=== PATIENT | female | born 1995 | race Caucasian/White ===

== ENCOUNTER 2017-11-12 18:37 | Emergency (ER) | payer OTHER, SELFPAY ==
[2017-11-12 19:44] VITALS: BP 104/68; PULSE 91; RESP 18; TEMP 36.8; O2SAT 96; BMI 17.6
[2017-11-12 20:12] LABS: UTC Influenza A Antigen Negative (Negative); UTC Influenza B Antigen Positive (Negative)
--- NOTE | 2017-11-12 20:25 | [facility]H.EDUTC ---
[facility] [place] Impression: Influenza B Disposition: Home, Self-Care Condition on Discharge: Good Instructions: DI for Influenza -- Adult Additional Instructions: * Too late to start tamiflu. Most effective when started within 48 hours of symptoms onset. * Lots of rest * Increase fluids, water, gatorade, powerade, pedialyte if /toddler/child * Monitor Temp. Tylenol every 4 hours as needed no more then 5 times a day or 4000mg in 24 hours and/or ibuprofen every 6 hours as needed no more then 3200mg in 24 hours (as long as your primary care doctor has told you that it is ok to take both) for fever/aches/pain. ER if fever no less than 101 despite tylenol and Ibuprofen * OTC cold/flu/sinus medication is ok but pick one. Do not take multiple different ones as they have similar ingredients and you can overdose on cold medication. * You (or your child) are contagious until no fever, aches, chills x 24 hours without medication for symptoms. Referrals: Harish Salinas MD [Primary Care Provider] - (IMMEDIATELY for new or worsening symptoms, improvement followed by suddenly feeling worse OR no noticeable improvement over the next 48-72 hours. 911 for difficulty breathing ) Forms: Work/School Release Time of Disposition: 20:32 Medical Decision Making Vital Signs: 11/12/17 19:44 Temperature 98.3 F Temperature Source Temporal Artery Scan Pulse Rate [Right Brachial] 91 H Respiratory Rate 18 Blood Pressure [Right Arm] 104/68 Blood Pressure Mean [Right Arm] 80 Blood Pressure Source [Right Arm] Automatic Cuff Blood Pressure Position [Right Arm] Sitting 02 Sat by Pulse Oximetry 96 Oxygen Delivery Method Room Air - Lab Data Lab results reviewed: Yes: I reviewed the patient's lab results. Lab Results 11/12/17 19:38: Influenza Type A Ag Negative, Influenza Type B Ag Positive A - Papi Inquiry Pt receiving controlled substance: No [facility] [place] - General Stated complaint: Body Aches, Fever Time Seen by Provider: 11/12/17 20:15 Mode of Arrival: Family Vehicle Source of Information: Patient Limitations: No Limitations Description of Symptoms (Recalled from Triage Doc. by RN): COUGHING, BODY ACHES AND CHILLS,AND FEVER. HEENT Symptoms (Recalled from RN notes): No Resp Symptoms (Recalled from RN notes): Yes (COUGHING) Skin Symptoms (Recalled from RN notes): No MS Symptoms (Recalled from RN notes): No Functional Status (Recalled from RN notes): NA - History of Present Illness Provider Complaint: c/o fever, bodyaches, chills, cough starting 3-4 days ago. I feel like I have the flu but I know it can't be because I just had flu A 2-3 weeks ago. This feels just like it though. Works in a personal shelter. OTC cold and flu medication hasn't helped much . - Related Data Home Medications Medication Instructions Recorded Confirmed Escitalopram Oxalate 10 mg PO DAILYDM 11/12/17 11/12/17 hydrOXYzine pamoate [Vistaril 25mg 25 mg PO HS 11/12/17 11/12/17 capsule] Allergies Allergy/AdvReac Type Severity Reaction Status Date / Time cefaclor [From [facility]] Allergy Mild Verified 11/12/17 19:20 - Worker's Comp Is this a Worker's Comp case?: No Is this an [place] Worker's Comp?: No Is this a [place] Worker's Comp?: No [facility] History Medical History: Reports:: Anxiety Denies:: Cancer, Diabetes Mellitus Type 1, Diabetes Mellitus Type 2, MRSA Other Medical History: Reports: Other (insomnia) Amputation: No Fractures: No Comment: wisdom teeth - *Social History Smoking Status: Current every day smoker Tobacco Type: cigarettes Alcohol Intake: never - Psychiatric History Expresses thoughts of harming self/others: None Suicide Plan Description: No Plan ROS Obtained: Yes Systems reviewed as appropriate & no additional complaints - Constitutional Constitutional: Reports as per HPI, Reports fatigue, Reports poor appetite (drinking well) - Eyes Eyes: Denies eye discharge, Denies eye pain - ENT Ear
--- NOTE | 2017-11-12 20:30 | ED_ITS ---
[facility] [place] Clinical Impression: Influenza B Disposition: Home, Self-Care Condition on Discharge: Good Instructions: DI for Influenza -- Adult Additional Instructions: * Too late to start tamiflu. Most effective when started within 48 hours of symptoms onset. * Lots of rest * Increase fluids, water, gatorade, powerade, pedialyte if /toddler/child * Monitor Temp. Tylenol every 4 hours as needed no more then 5 times a day or 4000mg in 24 hours and/or ibuprofen every 6 hours as needed no more then 3200mg in 24 hours (as long as your primary care doctor has told you that it is ok to take both) for fever/aches/pain. ER if fever no less than 101 despite tylenol and Ibuprofen * OTC cold/flu/sinus medication is ok but pick one. Do not take multiple different ones as they have similar ingredients and you can overdose on cold medication. * You (or your child) are contagious until no fever, aches, chills x 24 hours without medication for symptoms. Referrals: Harish Salinas MD [Primary Care Provider] - (IMMEDIATELY for new or worsening symptoms, improvement followed by suddenly feeling worse OR no noticeable improvement over the next 48-72 hours. 911 for difficulty breathing * ) Forms: Work/School Release Time of Disposition: 20:32 Medical Decision Making Vital Signs: 11/12/17 19:44 Temperature 98.3 F Temperature Source Temporal Artery Scan Pulse Rate [Right Brachial] 91 H Respiratory Rate 18 Blood Pressure [Right Arm] 104/68 Blood Pressure Mean [Right Arm] 80 Blood Pressure Source [Right Arm] Automatic Cuff Blood Pressure Position [Right Arm] Sitting 02 Sat by Pulse Oximetry 96 Oxygen Delivery Method Room Air - Lab Data Lab results reviewed: Yes: I reviewed the patient's lab results. Lab Results 11/12/17 19:38: Influenza Type A Ag Negative, Influenza Type B Ag Positive A - Papi Inquiry Pt receiving controlled substance: No [facility] [place] HPI - General Stated complaint: Body Aches, Fever Time Seen by Provider: 11/12/17 20:15 Mode of Arrival: Family Vehicle Source of Information: Patient Limitations: No Limitations Description of Symptoms (Recalled from Triage Doc. by RN): COUGHING, BODY ACHES AND CHILLS,AND FEVER. HEENT Symptoms (Recalled from RN notes): No Resp Symptoms (Recalled from RN notes): Yes (COUGHING) Skin Symptoms (Recalled from RN notes): No MS Symptoms (Recalled from RN notes): No Functional Status (Recalled from RN notes): NA - History of Present Illness Provider Complaint: c/o fever, bodyaches, chills, cough starting 3-4 days ago. I feel like I have the flu but I know it can't be because I just had flu A 2-3 weeks ago. This feels just like it though. Works in a personal [employer]. OTC cold and flu medication hasn't helped much . - Related Data Home Medications Medication Instructions Recorded Confirmed Escitalopram Oxalate 10 mg PO DAILYDM 11/12/17 11/12/17 hydrOXYzine pamoate [Vistaril 25mg 25 mg PO HS 11/12/17 11/12/17 capsule] Allergies Allergy/AdvReac Type Severity Reaction Status Date / Time cefaclor [From [facility]] Allergy Mild Verified 11/12/17 19:20 - Worker's Comp Is this a Worker's Comp case?: No Is this an [facility] Worker's Comp?: No Is this a [place] Worker's Comp?: No [facility] History Medical History: Reports:: Anxiety Denies:: Cancer, Diabetes Mellitus Type 1, Diabetes Mellitus Type 2, MRSA
== END 2017-11-12 20:36 | disposition home or self-care (01) ==
PROVIDERS: Emergency Provider Nurse Practitioner Family; Family Provider Family Medicine; PCP Emergency Medicine
DX: J10.1 Influenza due to other identified influenza virus with other respiratory manifestations (principal); F41.9 Anxiety disorder, unspecified; F17.210 Nicotine dependence, cigarettes, uncomplicated; Z79.899 Other long term (current) drug therapy
CPT/HCPCS: 87804; 99201

== ENCOUNTER 2017-12-20 22:33 | Emergency (ER) | payer OTHER, SELFPAY ==
[2017-12-20 23:03] VITALS: BP 0/0; PULSE 0; RESP 0; TEMP -17.7; TEMP 0
--- NOTE | 2017-12-20 23:51 | PC.NURSE ---
pt came to triage, Blood pressure was 98/56 with a heart rate of 74, said it was 80 systolic earlier and asked if her xanax would do that, when i said it was possible she decided to go home with out further exchange of information, pt was encouraged to return as needed for further symptoms
== END 2017-12-20 23:04 | disposition left against medical advice (07) ==
LOC: ER 12-21
PROVIDERS: Emergency Provider Emergency Medicine
DX: Z53.29 Procedure and treatment not carried out because of patient's decision for other reasons (principal)

== ENCOUNTER → 2018-04-12 11:53 | Outpatient (CLI) | payer OTHER, SELFPAY ==
[2018-04-12 12:47] LABS: HCG Qualitative, Serum Negative (Negative)
== END ==
PROVIDERS: Visit Provider Physician Assistant
DX: N91.2 Amenorrhea, unspecified (principal)
CPT/HCPCS: 36415; 84703

== ENCOUNTER → 2018-04-26 15:50 | Outpatient (REF) | payer OTHER, SELFPAY ==
[2018-04-26 18:22] LABS: Basophils % 0.7 % (0.1-2.0); Eosinophils # 0.1 K/mm3 (0.0-0.4); Eosinophils % 1.5 % (0.1-12.0); Hematocrit 43.1 % (37.0-47.0); Hemoglobin 13.3 g/dL (12.2-16.2); Lymphocytes % 31.1 K/mm3 (10-50); Mean Corpuscular HGB Conc 30.8 g/dL (31.8-35.4); Mean Corpuscular Hemoglobin 29.8 pg (27.0-31.2); Mean Corpuscular Volume 96.7 fl (81-99); Monocytes # 0.4 K/mm3 (0.1-1.0); Monocytes % 6.1 % (1.7-9.3); Neutrophils # 3.8 K/mm3 (1.8-7.8); Neutrophils % 60.7 % (37.0-80.0); Platelet Count 233 K/mm3 (142-424); Red Blood Count 4.45 M/mm3 (4.20-5.40); Red Cell Distribution Width 12.8 % (11.5-17.5); White Blood Count 6.3 K/mm3 (4.8-10.8)
[2018-04-26 18:48] LABS: Alanine Aminotransferase 17 U/L (12-78); Albumin Level 4.4 gm/dL (3.4-5.0); Albumin/Globulin Ratio 1.6 (1.1-1.8); Alkaline Phosphatase 43 U/L (46-116); Aspartate Amino Transferase 14 U/L (15-37); Bilirubin,Total 0.9 mg/dL (0.2-1.0); Blood Urea Nitrogen 9 mg/dL (7-18); Calcium 9.1 mg/dL (8.5-10.1); Carbon Dioxide 25 mmol/L (21.0-32.0); Chloride 106 mmol/L (98-107); Estimated Glomerular Filt Rate 90 ml/min (>60); GFR (African American) 109 ML/MIN (>60); Globulin 2.8 gm/dl (1.3-3.2); Glucose 90 mg/dL (74-106); Sodium 141 mmol/L (136-145); T4 (Thyroxine) 6.5 ug/dl (4.7-13.3); Thyroid Stimulating Hormone 0.89 uIU/ml (0.358-3.740); Total Protein,Serum 7.2 gm/dL (6.4-8.2)
== END ==
LOC: LAB 15:50
PROVIDERS: Visit Provider Emergency Medicine
DX: F32.9 Major depressive disorder, single episode, unspecified (principal)
CPT/HCPCS: 80053; 84436; 84443; 85025

== ENCOUNTER 2020-11-11 17:49 | Emergency (ER) | payer OTHER, SELFPAY ==
[2020-11-11 17:55] VITALS: BP 121/76; PULSE 87; RESP 18; TEMP 36.6; O2SAT 99; BMI 17.2
--- NOTE | 2020-11-11 18:16 | HMH.EDUTC ---
[facility] [place] Clinical Impression: Encounter for laboratory testing for COVID-19 virus Disposition: Home, Self-Care Condition on Discharge: Good Instructions: DI for COVID-19 (Suspected or Confirmed ), Coronavirus Disease 2019, Preventing the Spread of Coronavirus Discharge Instructions Additional Instructions: *Monitor Temp, Over the counter Motrin or Tylenol as directed/as needed Tylenol every 4 hours and Motrin every 6 hours (as long as your family doctor has told you that you can take it) for fever or pain. and straight to ER if unable to lower temp less than 101.0 after medication given Follow up IMMEDIATELY for new or worsening symptoms or no Noticeable improvement over the next 48-72 hours. 911 for difficulty breathing or swallowing You were tested for today for COVID19 your test result should be back in the next 24-48 hours, you may call to the [facility] to see if your test results are back in the next 48 hours [phone] [facility] hours are 9am-9pm You was given a handout with instructions for Self Quarantine and Self isolation for while you wait on test results and what to do if they are positive If you are positive the Health Dept will be contacting you also Referrals: Harish Salinas MD [Primary Care Provider] - As needed Forms: Work/School Release Time of Disposition: 18:18 Medical Decision Making - Papi Inquiry Pt receiving controlled substance: No Papi was queried for this patient: No Vital Signs: 11/11/20 17:55 Temperature 97.8 F Temperature Source Oral Pulse Rate [Left Brachial] 87 Respiratory Rate 18 Blood Pressure [Left Arm] 121/76 Blood Pressure Mean [Left Arm] 91 Blood Pressure Source [Left Arm] Automatic Cuff Blood Pressure Position [Left Arm] Sitting 02 Sat by Pulse Oximetry 99 Oxygen Delivery Method Room Air Orders (Tests/Meds): ORDERS Category Date Time Status Covid-19 Nasal PCR ([facility]) Routine Lab 11/11/20 18:00 Received [facility] [place] - General Stated complaint: covid test Time Seen by Provider: 11/11/20 18:16 Mode of Arrival: Ambulatory Source of Information: Patient Limitations: No Limitations Description of Symptoms (Recalled from Triage Doc. by RN): COVID TEST D/T EXPOSURE. 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 - Related Data Home Medications Medication Instructions Recorded Confirmed etonogestrel 68 mg subdermal 1 implant SUBDERMAL ONCE 12/07/17 06/28/20 implant Previous Rx's Medication Instructions Recorded citalopram 10 mg tablet 10 mg PO DAILY #30 tab 04/26/18 Albuterol Sulfate [Albuterol HFA 2 puffs IH Q6HP PRN #1 inh 08/09/18 Inhaler] Allergies Allergy/AdvReac Type Severity Reaction Status Date / Time cefaclor [From [facility]] Allergy Mild Verified 06/28/20 09:00 - Worker's Comp Is this a Worker's Comp case?: No [facility] History - Hepatitis A Screen Drug use history?: No High risk sexual behaviors?: No History of sexually transmitted infection?: No Currently employed?: No Childcare worker?: No Do you have indoor plumbing?: Yes Do you have electricity?: Yes Attestation statement:: This patient has been screened for Hepatitis A risk factors. I have reviewed the patient's past medical history: Yes Medical History: Reports:: Anxiety Denies:: Cancer, Diabetes Mellitus Type 1, Diabetes Mellitus Type 2, MRSA Other Medical History: Reports: Other Other Surgeries: Yes: No Previous Surgery Amputation: No Fractures: No Comment: WISDOM TEETH REMOVED - Social History Smoking Status: Current every day
[2020-11-11 18:17] VITALS: BP 121/76; PULSE 87; RESP 18; TEMP 36.6; O2SAT 99
== END 2020-11-11 18:25 | disposition home or self-care (01) ==
PROVIDERS: Emergency Provider Nurse Practitioner; PCP Emergency Medicine
DX: Z20.822 Contact with and (suspected) exposure to COVID-19 (principal); F41.9 Anxiety disorder, unspecified; Z88.1 Allergy status to other antibiotic agents; F17.210 Nicotine dependence, cigarettes, uncomplicated; Z79.899 Other long term (current) drug therapy
CPT/HCPCS: 99202; G0463; U0003

== ENCOUNTER → 2023-03-03 09:58 | Outpatient (CLI) | payer OTHER, SELFPAY | PROVIDERS: Visit Provider Nurse Practitioner Family | DX: J02.9 Acute pharyngitis, unspecified (principal) | CPT/HCPCS: 87070 ==

== ENCOUNTER → 2023-03-03 13:33 | Outpatient (CLI) | payer OTHER, SELFPAY | PROVIDERS: PCP Emergency Medicine; Visit Provider Emergency Medicine | DX: J02.9 Acute pharyngitis, unspecified (principal) ==